=== PATIENT | male | born 1985 | race Two or more races ===

== ENCOUNTER 2024-08-27 07:52 | Emergency (ER) | payer MEDICAID ==
[~2024-08-27] VITALS: Ht 149.9 cm; Wt 57.2 kg
[2024-08-27] MEDS ORDERED: TDAP [DIPH/PERTUSSIS/TET] 0.5 ML VIAL IM ONE (08:37)
[2024-08-27] MEDS: BACI/NEOM/POLY B OINT PKT 1 UDPKT PACKET TP ONE (08:42)
[2024-08-27] MEDS: TDAP [DIPH/PERTUSSIS/TET] 0.5 ML VIAL IM ONE (08:42)
[2024-08-27 09:03] VITALS: BP 138/80; TEMP 98.2; O2SAT 97
== END 2024-08-27 09:03 | disposition home or self-care (01) ==
LOC: ER 07:58
DX: S61.412A Laceration without foreign body of left hand, initial encounter (principal); W25.XXXA Contact with sharp glass, initial encounter; Y93.89 Activity, other specified; Y92.89 Other specified places as the place of occurrence of the external cause; Y99.8 Other external cause status
CPT/HCPCS: 90715